=== PATIENT | male | born 1945 | race Caucasian/White ===

== ENCOUNTER 2016-04-29 16:38 | Emergency (ER) | payer MEDICARE, BC, OTHER ==
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
[2016-04-29 20:52] VITALS: BP 122/72
== END 2016-04-29 20:52 | disposition home or self-care (01) ==
LOC: ER 16:38
DX: S16.1XXA Strain of muscle, fascia and tendon at neck level, initial encounter (principal); S20.212A Contusion of left front wall of thorax, initial encounter; V49.50XA Passenger injured in collision with unspecified motor vehicles in traffic accident, initial encounter; M54.2 Cervicalgia; R07.89 Other chest pain; M54.89 Other dorsalgia
CPT/HCPCS: 99284; 71020; 72125; L0120